=== PATIENT | female | born 1965 | race Caucasian/White ===

== ENCOUNTER 2019-03-20 06:26 | Day surgery (SDC) | payer BC ==
[~2019-03-20] VITALS: Ht 182.9 cm; Wt 131.1 kg
[~2019-03-20 06:26] MED LIST: AMOXICILLIN 50500 MG PO; AMOXICILLIN PO; ZOVIRAX200 MG PO
[2019-03-20 07:00] LABS: HEMATOCRIT 40.2 % (37.0-47.0); HEMOGLOBIN 13.3 gm/dL (12.0-15.0)
[2019-03-20 07:48] VITALS: BP 140/85
--- NOTE | 2019-03-20 09:31 | H ---
[facility] [place] [address] HISTORY AND PHYSICAL Name: SAGRARIO ADRIAN Room #: 150-2 [facility] M.R.#: [id number] Admission: 03/20/19 Attend Phys: Paul John, Discharge: Date of : 69 Report #: [id number] THIS REPORT FOR: //name// CC: FAM unknown Paul John DATE OF SCHEDULED SURGERY: 03/20/2019 REASON FOR SURGERY: Vulvar growth. HISTORY OF PRESENT ILLNESS: This is a 53-year-old, she had presented as a new patient on 02/11/2019. She had an annual exam at that time and her Pap smear was normal. She had a growth in the upper mid vulva that was causing her some irritation. A cytology of the growth was benign, but due to the increasing size and causing her irritation, she would like to have the growth removed at this time. 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 She had one therapeutic . She had a hysterectomy done about 4 years ago with removal of her left tube and ovary. She still has her right ovary. She has been on hormone replacement therapy. PAST MEDICAL HISTORY: Therapeutic as well as hysterectomy. SOCIAL HISTORY: She is , a former smoker. FAMILY HISTORY: Positive for diabetes. ALLERGIES: AUGMENTIN. ACTIVE MEDICATIONS: Acyclovir as needed for herpetic outbreaks. REVIEW OF SYSTEMS: She complains of the vulvar growth, but denies any fever or chills at this time. No nausea, vomiting, no diarrhea, dysuria, chest pain or shortness of breath. PHYSICAL EXAMINATION: LUNGS: Clear. HEART: Regular rate and rhythm. NECK: Revealed no thyroid nodules or supraclavicular adenopathy. BREASTS: Normal bilaterally. ABDOMEN: Soft, nontender. PELVIC EXAM: She had what appeared to be a large condyloma appearing growth in the upper vulva just above the clitoris. No other lesions seen. Bimanual is without masses or pain. 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 After [facility] [place] [address] HISTORY AND PHYSICAL Name: SAGRARIO ADRIAN Room #: 150-2 [employer].#: [id number] Admission: 03/20/19 Attend Phys: Paul John, Discharge: Date of : 69 Report #: [id number] discussing all options, she has elected to have it removed at this time, the procedure risks and recovery have been discussed with the patient. <ELECTRONICALLY SIGNED> By: Paul John MD 03/20/19 0931 1323 1330 Paul John MD /nt
--- NOTE | 2019-03-20 12:30 | H ---
[facility] [place] [address] HISTORY AND PHYSICAL Name: SAGRARIO ADRIAN Room #: DEP [facility]..#: [id number] Admission: 03/20/19 Attend Phys: Paul John, Discharge: 03/20/19 Date of : 69 Report #: [id number] THIS REPORT FOR: //name// CC: FAM unknown CB KEYS Paul John DATE OF SERVICE: 03/20/2019 PREOPERATIVE DIAGNOSIS: Enlarging vulvar growth. POSTOPERATIVE DIAGNOSIS: Enlarging vulvar growth with final pathology pending. Clinically, it appeared to be a large condyloma. SURGEON: Dr. Paul John. ANESTHESIA: General with also local infiltration at the site of excision of the vulvar growth using 1% Xylocaine with 1:100,000 epinephrine. Estimated blood loss was less than 10 mL. COMPLICATIONS: None. DESCRIPTION OF OPERATION: The patient taken to the operating room and given adequate anesthesia. She was connected to compression stockings, timeout was performed. She was placed in the stirrups. She was prepped and draped. She had a large growth superior to the clitoris in the midline. It appeared to be probably condyloma. Initially, the local anesthetic 1% Xylocaine with 1:100,000 epinephrine was injected at the site of excision of the lesion. At this point, while elevating with pickups, Metzenbaums were used to excise the entire lesion. It was sent to pathology. There were several small bleeding sites and these sites were cauterized. Some additional local anesthetic was injected along the incision lines. Then using 3-0 Vicryl, the skin was approximated in the midline using interrupted stitches of 3-0 Vicryl. There was excellent hemostasis. There were no complications. Sponge, needle and instrument count were correct. She was placed back into the supine position and taken to the recovery room in stable condition. <ELECTRONICALLY SIGNED> By: Paul John MD 03/20/19 1230 0920 0937 Paul John MD /nt
--- NOTE | 2019-03-20 17:12 | EKG ---
[place] [address] [facility] [place] [address] ELECTROCARDIOGRAM REPORT Name: NGUYỄNSAGRARIO Room #: DEP [facility]#: [id number] Admission: 03/20/19 Attend Phys: Paul John, Discharge: 03/20/19 Date of : 69 Report #: [id number] THIS REPORT FOR: //name// [facility] Test Date: 2019-03-20 Test Time: 06:52:03 Pat Name: SAGRARIO ADRIAN Department: Room: 150 2 Gender: F Chief Orthoptist: zully : 1965 Requested By: Paul John Order Number: [id number] MD: Darwin Paz Measurements Intervals [place] Rate: 81 P: 47 TX: 153 QRS: -24 QRSD: 125 T: 40 QT: 384 QTc: 446 Interpretive Statements Sinus rhythm IVCD, consider atypical RBBB Inferior infarct, old No previous ECG available for comparison Electronically Signed On 03-20-2019 17:11:29 [employer]ATING [employer]ER by Darwin Paz [email or web address] <ELECTRONICALLY SIGNED> By: Darwin Paz MD 03/20/19 1711 MD KAIDEN Castro
--- NOTE | 2019-03-22 12:07 | PATH ---
[facility] [address] [place] [address] PATHOLOGY RPT PROCEDURE Name: SAGRARIO SIDDIQUI Room #: DEP [facility] M.R.#: [id number] Admission: 03/20/19 Date of : 69 Discharge: 03/20/19 Report #: [id number] Path Case #: [id number] [facility] Accession Number: [id number] . 01 Material submitted: . vulva - VULVAR MASS . 01 Clinical history: . Others specific noninflammatory disorders of vulva and perineum . 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 - Background of condyloma acuminatum. - Negative for high-grade dysplasia. (IUV:roger; 03/21/2019) MBR 03/21/2019 1402 Local . 02 Comment: Properly controlled p16 immunohistochemical stain is performed on block A2 and it shows no evidence of diffuse reactivity present. (IUV:cephalometric analyst; 03/21/2019) . 02 Electronically signed: . Brenda Allan MD, Pathologist NPI- [id number] . 01 Gross description: . The specimen is received in formalin, labeled "Sagrario Siddiqiu, vulvar mass" and consists of a verrucoid pink rao polypoid segment of skin measuring 2.2 x 1.4 x 0.8 cm. The margin is inked black. It is serially sectioned and entirely submitted in A1-A2. (SDY; 03/20/2019) SYU/SYU 03/20/2019 1725 Local . 02 Pathologist provided ICD-10: N90.0, A63.0 . 02 CPT . 269326, Q01972 Specimen Comment: A courtesy copy of this report has been sent to [phone] Specimen Comment: Report sent to Performed at: [address], [place] [id number] MD Alonso Christine MD Phone: [phone] [place] [address] PATHOLOGY RPT PROCEDURE Name: SAGRARIO SIDDIQUI Room #: DEP [facility] M.R.#: [id number] Admission: 03/20/19 Date of : 69 Discharge: 03/20/19 Report #: [id number] Path Case #: [id number] Performed at: [address], [place], [place] [id number] MD Brenda Allan MD Phone: [phone]
== END 2019-03-20 10:17 | disposition home or self-care (01) ==
LOC: TBA 06:26 → OR 06:26 → TBA 06:36 → OR 09:14
PROVIDERS: Obstetrics & Gynecology
DX: N90.0 Mild vulvar dysplasia (principal); Z98.890 Other specified postprocedural states; Z79.899 Other long term (current) drug therapy; Z83.3 Family history of diabetes mellitus; Z88.8 Allergy status to other drugs, medicaments and biological substances; Z90.710 Acquired absence of both cervix and uterus; Z87.891 Personal history of nicotine dependence; Z87.19 Personal history of other diseases of the digestive system
CPT/HCPCS: 50010; 50101; 62110; 62900; 70005